=== PATIENT | female | born 1985 | race Two or more races ===

== ENCOUNTER 2017-01-03 19:16 | Emergency (ER) | payer MEDICAID, OTHER ==
[2017-01-03] MEDS ORDERED: IBUPROFEN 800 MG TABLET ONE (19:47)
[2017-01-03] MEDS ORDERED: OXYMETAZOLINE HCL 0.05% 30 SPRAYS/BOT NS ONE (19:47)
--- NOTE | 2017-01-09 14:21 | RAD ---
History: Cough for one week. Comparison: None. Technique: 2 views Findings: The soft tissue and bony structures are unremarkable. The heart size is appropriate. No infiltrate, effusion or pneumothorax is observed. The hilar and mediastinal structures are normal. Impression: 1. A negative 2 view chest
== END 2017-01-03 20:38 | disposition home or self-care (01) ==
LOC: ED 19:16
DX: J06.9 Acute upper respiratory infection, unspecified (principal); R09.82 Postnasal drip; E05.90 Thyrotoxicosis, unspecified without thyrotoxic crisis or storm
CPT/HCPCS: 71020; 99283 ×2; A9270 ×2